=== PATIENT | male | born 1990 | race Caucasian/White ===

== ENCOUNTER 2020-03-26 15:34 | Emergency (ER) | payer BC, SELFPAY ==
[2020-03-26 15:40] VITALS: BP 145/99; PULSE 125; RESP 22; TEMP 38.4; O2SAT 98; BMI 36.5
[2020-03-26 15:44] VITALS: BP 145/99; PULSE 125; RESP 22; TEMP 38.4; O2SAT 98; BMI 36.1
--- NOTE | 2020-03-26 16:00 | PC.NURSE ---
80mg of ibuprofen given by mouth and tolerated well. Unable to document on MAR related to computer problems.
--- NOTE | 2020-03-26 16:01 | HMH.EDUTC ---
[facility] [facility] [place] Clinical Impression: Fever Qualifiers: Fever type: unspecified Qualified Code(s): R50.9 - Fever, unspecified Diarrhea Qualifiers: Diarrhea type: unspecified type Qualified Code(s): R19.7 - Diarrhea, unspecified Disposition: Home, Self-Care Condition on Discharge: Good Instructions: Acetaminophen (Alternative Therapy), Diarrhea, DI for Fever (Symptom) -- Adult, Ibuprofen, Preventing the Spread of Coronavirus Discharge Instructions Additional Instructions: ? Drink extra fluids with and between meals. If you have difficulty drinking, try very small amounts of water or suck on ice chips. ? Avoid fruit juices, as these do not replace minerals and can actually increase diarrhea. ? Children and adults can use sports drinks to replenish electrolytes. Younger children and infants should use products formulated for children, like oral rehydration solutions. ? Eat food in small amounts and let your stomach recover. ? Get lots of rest. You may feel tired or weak. ? No greasy or fried foods for the next 24-48 hours BRAT diet Bananas Rice Apples and [place] ? Make sure to drink plenty of liquids ? Return if needed ? Straight to ER if any life threatening symptoms ? Zofran as prescribed ? You was given an outpatient order for diarrhea panel, please collect specimen and bring back to outpatient lab then call back to the [facility] or follow up with family doctor for results ? Follow up with family doctor in the next 48-72 hours if no improvement or any worsening of symptoms You was given handout with instructions on self quarantining due to possible COVID19, you must go home and self quarantine while awaiting test results and avoid people and public and stay home if positive test. No work until negative COVID 19 test. Make sure to call back to [facility] in the next couple of hours for results Return if needed Straight to ER if any worsening of symptoms, or any life threatening symptoms Prescriptions: Ondansetron [Zofran 4mg ODT] 4 mg PO Q8HP PRN #20 tab.rapdis PRN Reason: Nausea Transmission Status: Pending to [facility] Dicyclomine HCl [Bentyl 10mg capsule] 10 mg PO TID PRN #15 cap PRN Reason: Cramping Transmission Status: Pending to [facility] Referrals: Provider,Referral, [Primary Care Provider] - Forms: Work/School Release Time of Disposition: 17:28 Medical Decision Making - Robby Inquiry Pt receiving controlled substance: No Robby was queried for this patient: No Vital Signs: 03/26/20 15:40 03/26/20 15:44 Temperature 101.1 F H 101.1 F H Temperature Source Oral Oral Pulse Rate [Right] 125 H 125 H Respiratory Rate 22 22 Blood Pressure [Right Arm] 145/99 H 145/99 H Blood Pressure Mean [Right Arm] 114 114 Blood Pressure Source [Right Arm] Automatic Cuff Blood Pressure Position [Right Arm] Sitting 02 Sat by Pulse Oximetry 98 98 Oxygen Delivery Method Room Air Room Air - Lab Data Lab results reviewed: Yes: I reviewed the patient's lab results. Orders (Tests/Meds): ORDERS Category Date Time Status Respiratory Panel (COVID), PCR Stat Lab 03/26/20 16:24 Ordered SARS-CoV-2, [place] ([place]) Stat Lab 03/26/20 16:06 Stop Req - Reevaluation(s) Time: 16:48 Reevaluation #1: Awaiting lab results, sitting in chair no distress no diarrhea since arrival Time: 17:19 Reevaluation #3: Lab results still not back, called lab spoke to Paulo and advised would be another hour to hour and half and patient did not want to wait advised that he would call back for result. Patient educated on going home, quarantining and no work and not to be around anyone until negative covid test patient verbalized understanding and return to ER immediately if any worsening of symptoms or any life threatening symptoms [facility] [place] [facility] [place] - General Stated complaint: SOB,MORAES,Diarrhea Time Seen by Provider: 03/26/20 16:01 Mode of Arrival: Ambulatory Source of Information: Patient Limitations: No Limitations Description of S
--- NOTE | 2020-03-26 16:58 | PC.NURSE ---
tylenol given per order.
[2020-03-26 17:29] VITALS: PULSE 110; TEMP 37.7
[2020-03-26 17:31] LABS: UTC Strep Screen (Rapid) Negative (Negative)
[2020-03-26 17:32] LABS: UTC Influenza A Antigen Negative (Negative); UTC Influenza B Antigen Negative (Negative)
[2020-03-26 17:35] VITALS: BP 145/99; PULSE 110; RESP 22; TEMP 37.7; O2SAT 98
[2020-03-26 19:42] LABS: Adenovirus,PCR Not Detected (NotDetected); Bordetella Pertussis Not Detected (NotDetected); Chlamydophila Pneumoniae, PCR Not Detected (NotDetected); Coronavirus 19, PCR Not Detected (NotDetected); Coronavirus 229E Not Detected (NotDetected); Coronavirus NL63 Not Detected (NotDetected); Coronavirus OC43 Not Detected (NotDetected); Coronovirus HKU1,PCR Not Detected (NotDetected); Human Metapneumovirus Not Detected (NotDetected); Influenza A, PCR Not Detected (NotDetected); Influenza AH1, 2009 Not Detected (NotDetected); Influenza AH1, PCR Not Detected (NotDetected); Influenza AH3,PCR Not Detected (NotDetected); Influenza B, PCR Not Detected (NotDetected); Mycoplasma Pneumoniae, PCR Not Detected (NotDected); Parainfluenza 1, PCR Not Detected (NotDetected); Parainfluenza 2, PCR Not Detected (NotDetected); Parainfluenza 3, PCR Not Detected (NotDetected); Parainfluenza 4, PCR Not Detected (NotDetected); Respiratory Syncytial Virus Not Detected (NotDetected); Rhinovirus/Enterovirus Not Detected (NotDetected)
== END 2020-03-26 17:36 | disposition home or self-care (01) ==
PROVIDERS: Emergency Provider Nurse Practitioner
DX: R19.7 Diarrhea, unspecified (principal); R50.9 Fever, unspecified
CPT/HCPCS: 87581; 87633; 87798; 87804; 87880; 99202

== ENCOUNTER 2020-03-27 08:47 | Emergency (ER) | payer BC, SELFPAY ==
[2020-03-27 08:47] VITALS: BP 132/71; PULSE 120; RESP 22; TEMP 39.4; O2SAT 97; BMI 36.5
--- NOTE | 2020-03-27 08:53 | HMH.EDGENADL ---
ED Disposition Clinical Impression: Campylobacter enteritis, Colitis, E coli enteritis Disposition: Home, Self-Care Condition on Discharge: Fair Instructions: DI for Diarrhea and Traveler's Diarrhea -- Adult, DI for Colitis Additional Instructions: Zithromax as prescribed. Drink plenty of fluids. Tylenol or ibuprofen for fever and pain. Off work until diarrhea and fever have resolved. Return to the emergency room if uncontrollable fever greater than 104 degrees, persistent vomiting, severe abdominal pain or distention. You are being provided with a list of physicians available for follow-up of your condition. Please call a physician on this list to arrange a follow-up appointment as soon as possible. Prescriptions: Azithromycin [Zithromax 250mg tab] 250 mg PO DAILY #4 tab Transmission Status: Received by [id number] Referrals: Provider,Referral, [Primary Care Provider] - Forms: Work/School Release - Critical Care Critical Care Time: No Attestation: On , the high probability of a clinically significant, sudden or life threatening deterioration of the following system(s) required my full and direct attention, intervention and personal management. The time I documented below is in addition to time spent performing reported procedures but includes the following listed in this critical care notation. Medical Decision Making - Medical Records Medical records reviewed: Yes: I reviewed the patient's medical records. - Robby Inquiry Pt receiving controlled substance: No Robby was queried for this patient: Yes Reference #:: [id number] Comment: 0 rxs. Vital Signs: 03/27/20 08:47 03/27/20 09:34 03/27/20 10:51 Temperature 102.9 F H 99.1 F Temperature Source Oral Oral Pulse Rate Pulse Rate [Left Radial] 120 H 112 H Respiratory Rate 22 Blood Pressure Blood Pressure [Right Arm] 132/71 112/70 Blood Pressure Mean [Right Arm] 91 84 Blood Pressure Source Blood Pressure Position Blood Pressure Position [Right Arm] Sitting Sitting 02 Sat by Pulse Oximetry 97 Oxygen Delivery Method Room Air 03/27/20 12:21 Temperature 99.1 F Temperature Source Oral Pulse Rate 112 H Pulse Rate [Left Radial] Respiratory Rate 22 Blood Pressure 112/70 Blood Pressure [Right Arm] Blood Pressure Mean [Right Arm] Blood Pressure Source Automatic Cuff Blood Pressure Position Sitting Blood Pressure Position [Right Arm] 02 Sat by Pulse Oximetry Oxygen Delivery Method Room Air - Lab Data Lab results reviewed: Yes: I reviewed the patient's lab results. Lab Results 03/27/20 09:03: WBC 12.1 H, RBC 5.10, Hgb 14.5, Hct 43.1, MCV 84.4, MCH 28.4, MCHC 33.6, RDW 13.9, Plt Count 177, MPV 8.9, Neut % (Auto) 87.9 H, Lymph % (Auto) 6.0 L, [place] % (Auto) 5.6, Eos % (Auto) 0.3, Baso % (Auto) 0.1, Neut # (Auto) 10.6 H, Lymph # (Auto) 0.7, [place] # (Auto) 0.7, Eos # (Auto) 0.0, Baso # (Auto) 0.0, Total Counted 100, Neutrophils % (Manual) 90 H, Lymphocytes % (Manual) 4 L, Monocytes % (Manual) 6, Platelet Estimate Normal, RBC Morphology Normal 03/27/20 09:03: Sodium 132 L, Potassium 3.7, Chloride 99, Carbon Dioxide 23, Anion Gap 13.7, BUN 15, Creatinine 0.80, Estimated Creat Clear 210, Estimated GFR 114, Est GFR ( Amer) 138, Glucose 205 H, Calcium 8.4, Total Bilirubin 1.3, AST 58, ALT 152 H, Alkaline Phosphatase 136 H, Total Protein 7.6, Albumin 4.2, Globulin 3.4 H, Albumin/Globulin Ratio 1.2 03/27/20 09:03: Stl Aeromonas (PCR) Not detected, Stl C. cayetanensis PCR Not detected, Stool Rotavirus (PCR) Not detected, Stl Adenov F 40/41 PCR Not detected, Stool Astrovirus (PCR) Not detected, Stool Campylobacter PCR Detected A, Stl C.difficile Tox PCR Not detected, Stool Cryptosporidium PCR Not detected, Stl E.coli Shiga Tox PCR Not detected, Stool E coli O157 PCR Not detected, Stl Enterotoxigenic E PCR Not detected, Stool EPEC (PCR) Detected A, Stool EAEC (PCR) Not detected, Stl E. histolytica PCR Not detected, Stool Mami
[2020-03-27 09:03] VITALS: BMI 41.1
--- NOTE | 2020-03-27 09:09 | CT_ITS ---
PROCEDURE: CT ABDOMEN PELVIS W CON CLINICAL INDICATION: abdo pain Abdominal pain with fever chills nausea and diarrhea COMPARISON: No exams were available for comparison TECHNIQUE: IV Contrast: 75ML OPTIRAY 350 Oral Contrast 20ml Gastroview Axial images obtained with sagittal and coronal reformats. All CT scans at the facility use one or more dose reduction, viz: automated exposure control, ma/kV adjustment per patient size (including targeted exams where dose is matched to indication, i.e. head), or iterative reconstruction technique. FINDINGS: LOWER THORAX: No acute finding ABDOMEN & PELVIS: Mild fatty liver. There is splenomegaly at 16 cm. The pancreas, adrenal glands, and kidneys have an unremarkable appearance. There are few scattered small retroperitoneal, peripancreatic, and portal lymph nodes as well as scattered small nodes in the mesenteries and right lower quadrant. No evidence of appendicitis or diverticulitis. There is mild diffuse thickening of the ascending, transverse, and descending and proximal sigmoid colon consistent with colitis. No abnormal fluid collections. No acute bony anomalies. There is degenerative disc disease in the lower thoracic spine. Nodes are present in the right lower quadrant measuring up to 1.5 cm. There is a small umbilical hernia containing fat. IMPRESSION: 1. Mild diffuse thickening of the colon of the ascending, transverse, descending, and proximal sigmoid colon consistent with colitis. 2. Scattered small mesenteric and retroperitoneal lymph nodes which are nonspecific. 3. No evidence of appendicitis or diverticulitis. Dictated by: Cristofer Hernandez MD 03/27/2020 10:03 Electronically signed by Cristofer Hernandez MD in [place] 03/27/2020 10:03
[2020-03-27 09:12] LABS: Adenovirus F 40/41, stool Not Detected (NotDetected); Astrovirus Not Detected (NotDetected); Clostridium Difficile A/B, PCR Not Detected (NotDetected); Cryptosporidium Not Detected (NotDetected); Cyclospora Cayetanesis Not Detected (NotDetected); Entamoeba histolytica Not Detected (NotDetected); Enteroaggregative E coli Not Detected (NotDetected); Enterotoxigenic E coli Not Detected (NotDetected); Giardia lamblia Not Detected (NotDetected); Norovirus Not Detected (NotDetected); Plesimonas Shigalloides, PCR Not Detected (NotDetected); Rotavirus A Not Detected (NotDetected); Salmonella, PCR Not Detected (NotDetected); Sapovirus Not Detected (NotDetected); Shiga-like toxin E coli Not Detected (NotDetected); Shigella Enterovasive E coli Not Detected (NotDetected); Vibrio Cholerae Not Detected (NotDetected); Vibrio, PCR Not Detected (NotDetected); Yersinia Entercolitica, PCR Not Detected (NotDetected)
[2020-03-27 09:16] LABS: Basophils % 0.1 % (0.1-2.0); Eosinophils % 0.3 % (0.1-12.0); Hematocrit 43.1 % (42.0-52.0); Hemoglobin 14.5 g/dL (14.1-18.0); Lymphocytes # 0.7 K/mm3 (0.7-4.5); Mean Corpuscular HGB Conc 33.6 g/dL (31.8-35.4); Mean Corpuscular Hemoglobin 28.4 pg (27.0-31.2); Mean Corpuscular Volume 84.4 fl (80-94); Mean Platelet Volume 8.9 fl (7.4-10.4); Monocytes # 0.7 K/mm3 (0.1-1.0); Monocytes % 5.6 % (1.7-9.3); Neutrophils # 10.6 K/mm3 (1.8-7.8); Neutrophils % 87.9 % (37.0-80.0); Platelet Count 177 K/mm3 (142-424); Red Cell Distribution Width 13.9 % (11.5-17.5); White Blood Count 12.1 K/mm3 (4.8-10.8)
[2020-03-27 09:17] LABS: Chloride 99 mmol/L (98-107); Sodium 132 mmol/L (136-145)
[2020-03-27 09:18] LABS: Potassium 3.7 mmoL/L (3.5-5.1)
[2020-03-27 09:20] LABS: Alanine Aminotransferase 152 U/L (12-78); Albumin Level 4.2 g/dl (3.5-5.0); Albumin/Globulin Ratio 1.2 (1.1-1.8); Alkaline Phosphatase 136 U/L (38-126); Anion Gap 13.7 mEq/L (5-15); Aspartate Amino Transferase 58 U/L (17-59); Bilirubin,Total 1.3 mg/dl (0.2-1.3); Blood Urea Nitrogen 15 mg/dl (9-20); Carbon Dioxide 23 mmol/L (22.0-30.0); Creatinine Clearance Estimated 210 mL/min (50-200); Estimated Glomerular Filt Rate 114 ml/min (>60); GFR (African American) 138 ML/MIN (>60); Globulin 3.4 g/dL (1.3-3.2); MANUAL DIFFERENTIAL MANUAL DIFFERENTIAL (MANUAL DIFF); Total Protein,Serum 7.6 g/dl (6.3-8.2)
[2020-03-27 09:21] LABS: Calcium 8.4 mg/dl (8.4-10.2); Glucose 205 mg/dl (74-100); Lipase 32 U/L (23-300)
[2020-03-27 09:28] LABS: Lymphocytes % 4 % (10-50); Monocytes % 6 % (2-9); Neutrophils % 90 % (42-76); Platelet Estimate Normal; RBC Morphology Normal; Total Cells Counted 100
[2020-03-27 09:34] VITALS: BP 112/70; PULSE 112
[2020-03-27 09:37] LABS: Lactic Acid 1.2 mmol/L (0.7-2.1)
[2020-03-27 10:22] LABS: Appearance,Urine CLEAR (Clear); Blood, Urine Negative (Negative); Color,Urine DK YELLOW (Yellow); Glucose,Urine (UA) Negative (Negative); Ketones,Urine 1+ (Negative); Leukocyte Esterase,Urine Negative (Negative); Microscopic, Urine URINE MICROSCOPIC (MICROSCOPIC); Nitrate,Urine Negative (Negative); PH,Urine 5.5 (5.0-8.5); Protein,Urine 1+ (Negative); Specific Gravity, Urine 1.015 (1.005-1.030); Urobilinogen,Urine 0.2 EU/dl (0.2)
[2020-03-27 10:28] LABS: Bilirubin,Urine Negative (Negative)
[2020-03-27 10:41] LABS: WBC,Urine Occasional #/hpf (0-3)
[2020-03-27 10:51] VITALS: TEMP 37.3
[2020-03-27 11:05] LABS: Campylobacter Detected (NotDetected)
[2020-03-27 11:06] LABS: Enteropathogenic E coli Detected (NotDetected)
--- NOTE | 2020-03-27 11:18 | PC.NURSE ---
notified of diarrhea panel results.
--- NOTE | 2020-03-27 11:23 | PC.NURSE ---
Pt is sleeping soundly at this time.
[2020-03-27 12:21] VITALS: BP 112/70; PULSE 112; RESP 22; TEMP 37.3; O2SAT 97
[2020-03-28 05:11] LABS: Hep A Ab, IgM Negative (Negative); Hepatitis B Core Antibody IgM Negative (Negative); Hepatitis B Surface Antigen Negative (Negative)
[2020-03-28 10:37] LABS: Hepatitis C Antibody <0.1 s/co ratio (0.0-0.9)
== END 2020-03-27 12:22 | disposition home or self-care (01) ==
PROVIDERS: Emergency Provider Emergency Medicine
DX: K52.9 Noninfective gastroenteritis and colitis, unspecified (principal); A04.4 Other intestinal Escherichia coli infections; A04.5 Campylobacter enteritis
CPT/HCPCS: 74177; 80053; 80074; 81001; 83605; 83690; 85007; 85025; 87040; 87507; 96365; 96366; 96367; 99284; J0456; Q9967

== ENCOUNTER 2021-07-01 19:19 | Emergency (ER) | payer BC, SELFPAY ==
[2021-07-01 20:19] VITALS: BP 139/91; PULSE 82; RESP 21; TEMP 38.9; O2SAT 99; BMI 39.5
--- NOTE | 2021-07-01 20:38 | HMH.EDUTC ---
[facility] – [place] Clinical Impression: Sinusitis Qualifiers: Sinusitis location: unspecified location Chronicity: unspecified Qualified Code(s): J32.9 - Chronic sinusitis, unspecified Disposition: Home, Self-Care Condition on Discharge: Good Instructions: DI for Fever (Symptom) -- Adult Additional Instructions: *Monitor Temp, Over the counter Motrin or Tylenol as directed/as needed Tylenol every 4 hours and Motrin every 6 hours (as long as your family doctor has told you that you can take it) for fever or pain. and straight to ER if unable to lower temp less than 101.0 after medication given *Warm salt water gargles may help to soothe the throat *Throat Lozenges *Warm fluids like tea with honey may help to soothe the throat *Sleep elevated *Humidifier/Vaporizer *Flonase 2 sprays in each nostril daily but be aware that it may take 2-3 days before you notice improvement Follow up IMMEDIATELY for new or worsening symptoms or no Noticeable improvement over the next 48-72 hours. 911 for difficulty breathing or swallowing You were tested for today for COVID19 your test result should be back in the next 24-48 hours, You was given handout for instructions to [facility] to view your result if you are unable to log on you may call You was given a handout with instructions for Self Quarantine and Self isolation for while you wait on test results and what to do if they are positive If you are positive the Health Dept will be contacting you also Make sure to take your Vitamins Vit. C Vit D and Zinc if you can take them Prescriptions: Doxycycline Monohydrate [Doxycycline [place] 100mg Tab] 100 mg PO Q12 7 Days #14 tab Transmission Status: Received by [facility] Fluticasone Propionate [Flonase 50mcg nasal spray 16gm] 1 spr NS DAILY #1 each Transmission Status: Received by [facility] predniSONE [Prednisone 20mg Tab] 20 mg PO BID 5 Days #10 tab Transmission Status: Received by [facility] Referrals: Provider,Referral, MD [Primary Care Provider] - Forms: Work/School Release Medical Decision Making - Robby Inquiry Pt receiving controlled substance: No Robby was queried for this patient: No Vital Signs: 07/01/21 20:19 07/01/21 20:58 Temperature 102.0 F H 100.7 F H Temperature Source Oral Pulse Rate 82 Pulse Rate [Right Brachial] 82 Respiratory Rate 21 21 Blood Pressure 139/91 H Blood Pressure [Right Arm] 139/91 H Blood Pressure Mean [Right Arm] 107 Blood Pressure Source [Right Arm] Automatic Cuff Blood Pressure Position [Right Arm] Sitting 02 Sat by Pulse Oximetry 99 Oxygen Delivery Method Room Air Orders (Tests/Meds): ED MEDICATIONS Discontinued Medications Generic Name Dose Route Start Last Admin Trade Name Joie PRN Reason Stop Dose Admin Acetaminophen 650 mg 07/01/21 20:11 07/01/21 20:15 Acetaminophen 325mg Tab PO 07/01/21 20:12 650 mg ONCE ONE Administration Doxycycline Hyclate 100 mg 07/01/21 20:50 07/01/21 20:57 Doxycycline Hycl 100 Mg Tablet PO 07/01/21 20:51 100 mg ONCE ONE Administration Ibuprofen 800 mg 07/01/21 20:11 07/01/21 20:15 Ibuprofen 400 Mg Tablet PO 07/01/21 20:12 800 mg ONCE ONE Administration ORDERS Category Date Time Status Covid-19 Nasal PCR ([facility]) Routine Lab 07/01/21 19:[address] [facility] [place] - General Stated complaint: sinus,sore throat,MORAES Time Seen by Provider: 07/01/21 20:38 Mode of Arrival: Ambulatory Source of Information: Patient Description of Symptoms (Recalled from Triage Doc. by RN): fever. body aches. sinus pressure. cough HEENT Symptoms (Recalled from RN notes): Yes Resp Symptoms (Recalled from RN notes): Yes Skin Symptoms (Recalled from RN notes): No MS Symptoms (Recalled from RN notes): No Functional Status (Recalled from RN notes): yes - History of Present Illness Provider Complaint: Patient states that he feels like he is having a sinus infectio
[2021-07-01 20:58] VITALS: BP 139/91; PULSE 82; RESP 21; TEMP 38.2
== END 2021-07-01 20:58 | disposition home or self-care (01) ==
PROVIDERS: Emergency Provider Nurse Practitioner
DX: U07.1 COVID-19 (principal); J32.9 Chronic sinusitis, unspecified; J02.9 Acute pharyngitis, unspecified
CPT/HCPCS: 99202; C9803; G0463; U0003; U0005

== ENCOUNTER → 2021-07-02 17:44 | Outpatient (CLI) | payer BC, SELFPAY | PROVIDERS: Visit Provider Nurse Practitioner | DX: Z20.822 Contact with and (suspected) exposure to COVID-19 (principal); U07.1 COVID-19 | CPT/HCPCS: C9803; U0003; U0005 ==

== ENCOUNTER → 2021-07-11 08:10 | Outpatient (CLI) | payer BC, SELFPAY | PROVIDERS: Visit Provider Nurse Practitioner | DX: Z20.822 Contact with and (suspected) exposure to COVID-19 (principal); U07.1 COVID-19 | CPT/HCPCS: C9803; U0003; U0005 ==

== ENCOUNTER 2022-06-29 15:53 | Emergency (ER) | payer BC, SELFPAY ==
[2022-06-29 16:01] VITALS: BP 134/101; PULSE 109; RESP 24; TEMP 37.2; O2SAT 97; BMI 36.6
--- NOTE | 2022-06-29 16:15 | EXP.UTC ---
Discharge Plan Disposition Patient Disposition: Home, Self-Care Condition: Good Referrals Follow up/Referrals: Provider,Referral, [Primary Care Provider] - See instructions Activity Restrictions/Add. Instructions Additional Instructions/Restrictions: Do not drink energy drinks. Clinical Impressions Clinical Impression: Viral illness Stand Alone Forms Stand Alone Forms: Work/School Release Instructions Patient Instructions: DI for COVID-19 (Suspected or Confirmed ), Preventing the Spread of Coronavirus Discharge Instructions Discharge ED Provider: Josephine Kimball [facility] [place] General Stated complaint: ? fever,body aches Mode of Arrival: Ambulatory Source of Information: Patient Limitations: No Limitations Time Seen by Provider: 06/29/22 16:06 Description of Symptoms (Recalled from Triage Doc. by RN): pt comes in with c/o fever, diarrhea, body aches, belly cramping, shortness of air. symptoms began last night. HEENT Symptoms (Recalled from RN notes): Yes Resp Symptoms (Recalled from RN notes): Yes Skin Symptoms (Recalled from RN notes): No MS Symptoms (Recalled from RN notes): No Functional Status (Recalled from RN notes): n/a History of Present Illness Provider Complaint: Pt states that last night he started having body aches and subjective fever. He relates that he feels short of air and has had abdominal pain and diarrhea. He states that he thought that he would feel better after he woke up. He states that he took his son to his soccer game and his body was hurting so bad that he left him with his dad and came to be seen. He states that he has never had body aches like this before. He relates that he drank an energy drink upon arising today. He denies any recent vaccination. Related Data Allergies Allergy/AdvReac Type Severity Reaction Status Date / Time Penicillins Allergy Verified 06/29/22 16:07 Worker's Comp Is this a Worker's Comp case?: No [facility] Social History Smoking Status: Never smoker alcohol intake: never current occupational status: employed Travel in the last 8 weeks: None housing: other ROS Obtained: Yes All systems reviewed & no additional complaints except as documented Constitutional Constitutional: Reports body ache, Reports fatigue and Reports fever(s) Eyes Eyes: Reports system reviewed and no additional complaints, except as documented ENT Ears, Nose, Mouth, and Throat: Reports system reviewed and no additional complaints, except as documented Cardiovascular Cardiovascular: Reports system reviewed and no additional complaints, except as documented Respiratory Respiratory: Reports as per HPI and Reports shortness of breath Gastrointestinal Gastrointestingal: Reports system reviewed and no additional complaints, except as documented Genitourinary Male Genitourinary: Reports system reviewed and no additional complaints, except as documented Musculoskeletal Musculoskeletal: Reports as per HPI and Reports myalgias Integumentary/Breasts Skin/Breast: Reports system reviewed and no additional complaints, except as documented Neurologic Neurologic: Reports system reviewed and no additional complaints, except as documented Endocrine Endocrine: Reports as per HPI and Reports fatigue Hematologic/Lymphatic Henatologic/Lymphatic: Reports system reviewed and no additional complaints, except as documented Allergic/Immunologic Allergic/Immunologic: Reports system reviewed and no additional complaints, except as documented Physical Exam General General appearance: alert and anxious Head Head exam: atraumatic and normocephalic Eye Eye exam: Present normal appearance ENT ENT exam: Present normal exam, normal oropharynx and mucous membranes moist Neck Neck exam: Present normal inspection Chest Chest inspection: Present normal inspection and symmetric chest wall rise Respiratory Respiratory exam: Present normal lung sounds bi
[2022-06-29 16:23] LABS: UTC Influenza A Antigen Negative (Negative); UTC Influenza B Antigen Negative (Negative)
[2022-06-29 16:46] VITALS: BP 134/71; PULSE 90; RESP 24; TEMP 37.2
== END 2022-06-29 16:47 | disposition home or self-care (01) ==
PROVIDERS: Emergency Provider Nurse Practitioner Family
DX: B34.9 Viral infection, unspecified (principal); R06.02 Shortness of breath; M79.10 Myalgia, unspecified site; R19.7 Diarrhea, unspecified; R50.9 Fever, unspecified; Z20.822 Contact with and (suspected) exposure to COVID-19; Z88.0 Allergy status to penicillin
CPT/HCPCS: 87804; 99213; C9803; G0463; U0003; U0005

== ENCOUNTER 2023-01-09 13:05 | Emergency (ER) | payer BC, SELFPAY ==
--- NOTE | 2023-01-09 13:29 | EXP.UTC ---
Discharge Plan Disposition Patient Disposition: Home, Self-Care Condition: Good Prescriptions Prescriptions: New erythromycin 5 mg/gram (0.5 %) ointment 1 cm ophthalmic (eye) Q4H 7 Days Qty: 3.5 0RF ibuprofen [IBU] 800 mg tablet 800 mg PO Q8HP PRN (Reason: Moderate Pain) Qty: 30 0RF Referrals Follow up/Referrals: Provider,Referral, MD [Primary Care Provider] - See instructions Activity Restrictions/Add. Instructions Additional Instructions/Restrictions: Use the eye ointment as directed. Take the ibuprofen for pain. Follow up with your regular doctor. These usually heal well, but if you are continuing to have worsening symptoms after 48 hours, please follow up with your eye doctor. GO TO THE ER FOR ANY WORSENING SYMPTOMS OR CONCERNS Clinical Impressions Clinical Impression: Abrasion, corneal Instructions Patient Instructions: DI for Corneal Abrasion, Corneal Abrasion, Erythromycin Ophthalmic Discharge ED Provider: Sebastien Diaz [facility] [place] General Stated complaint: right eye hurt, no sure if somethings in it Time Seen by Provider: 01/09/23 13:29 History of Present Illness Provider Complaint: He states that some during last night it felt like he got something in his left eye. When he woke up this morning his symptoms were worse. He denies any known injury. Related Data Previous Rx's Medication Instructions Recorded erythromycin 5 mg/gram (0.5 %) eye 1 cm ophthalmic (eye) Q4H 7 days 01/09/23 ointment #3.5 grams ibuprofen 800 mg tablet (IBU) 800 mg PO Q8HP PRN Moderate Pain 01/09/23 #30 tabs Allergies Allergy/AdvReac Type Severity Reaction Status Date / Time Penicillins Allergy Verified 01/09/23 13:32 [facility] Disclaimer: The information contained in this section may have been updated after the patient was seen, as this information can be updated by other users. Social History Smoking Status: Never smoker alcohol intake: never current occupational status: employed Travel in the last 8 weeks: None housing: other ROS Obtained: Yes All systems reviewed & no additional complaints except as documented Constitutional Constitutional: Denies chills and Denies fever(s) Eyes Eyes: Reports as per HPI, Denies change in vision and Reports eye discharge ENT Ears, Nose, Mouth, and Throat: Denies dizziness, Denies otalgia and Denies sore throat Cardiovascular Cardiovascular: Denies chest pain Respiratory Respiratory: Denies shortness of breath, Denies chest congestion, Denies cough, Denies stridor and Denies wheezing Gastrointestinal Gastrointestingal: Denies nausea or vomiting Musculoskeletal Musculoskeletal: Reports system reviewed and no additional complaints, except as documented and Denies arthralgias Integumentary/Breasts Skin/Breast: Denies rash Neurologic Neurologic: Denies dizziness and Denies paresthesias Allergic/Immunologic Allergic/Immunologic: Denies wheezing Physical Exam General General appearance: alert and in no apparent distress Head Head exam: atraumatic, normocephalic and normal inspection Eye Eye exam: Present PERRL and EOMI Expanded Eye Exam Eyelids: left: erythema and right: normal inspection Pupils: Left: size (3), Right: size (3) and Bilateral: regular, round and reactive Sclera/Conjunctival: left: injection (corneal abrasion noted upon dying and exam. ) and right: normal inspection ENT ENT exam: Present normal exam, normal oropharynx, mucous membranes moist, TM's normal bilaterally and normal external ear exam Neck Neck exam: Present normal inspection, full ROM and trachea midline; Absent meningismus or lymphadenopathy Chest Chest inspection: Present normal inspection and symmetric chest wall rise; Absent tenderness Respiratory Respiratory exam: Present normal lung sounds bilaterally; Absent respiratory distress Cardiovascular Cardiovascular exam: Present regular rate and normal rhythm;
[2023-01-09 13:30] VITALS: BP 168/108; PULSE 101; RESP 16; TEMP 36.8; O2SAT 99; BMI 38.4
[2023-01-09 14:18] VITALS: BP 168/108; PULSE 101; RESP 16; TEMP 36.8
== END 2023-01-09 14:23 | disposition home or self-care (01) ==
LOC: ER 13:21 → UTC 13:22
PROVIDERS: Emergency Provider Nurse Practitioner Family
DX: S05.01XA Injury of conjunctiva and corneal abrasion without foreign body, right eye, initial encounter (principal)
CPT/HCPCS: 99212; 99214; G0463

== ENCOUNTER 2023-11-13 08:14 | Emergency (ER) | payer BC, SELFPAY ==
[2023-11-13 08:15] VITALS: BP 127/97; PULSE 118; RESP 18; TEMP 36.8; O2SAT 97; BMI 36.5
--- NOTE | 2023-11-13 08:30 | EXP.UTC ---
Discharge Plan Disposition Patient Disposition: Home, Self-Care Condition: Good Prescriptions Prescriptions: New ibuprofen [IBU] 800 mg tablet 800 mg PO Q8HP PRN (Reason: Moderate Pain) Qty: 30 0RF cephalexin 500 mg capsule 500 mg PO QID Qty: 40 0RF Referrals Follow up/Referrals: Carlos Harp MD [Staff Physician] - 11/18/23 9:30 am Provider,MD Malinda [Primary Care Provider] - See instructions Activity Restrictions/Add. Instructions Additional Instructions/Restrictions: Take ibuprofen for pain. I sent in a prescription for ibuprofen 800 mg. Take the medications as directed. Follow up with your regular doctor. I called the General Surgeon's office and got you an appointment to be seen there. Your appointment is on November 18 (Friday) at 9:[address] Harp here in his office in the hospital. If your symptoms aree worsening before then please call the office and see if they can see you sooner. GO TO THE ER FOR ANY WORSENING SYMPTOMS Clinical Impressions Clinical Impression: Pilonidal cyst Instructions Patient Instructions: Pilonidal Cyst, Cephalexin Discharge ED Provider: Sebastien Diaz [facility] General Stated complaint: tailbone pain, swollen Time Seen by Provider: 11/13/23 08:28 History of Present Illness Provider Complaint: He states that for the past 3 days he has had a painful tender area of swelling at the top of the cleft of his buttocks. He states that sitting and lying on his back makes the pain worse. He denies any fever/chills/malaise. He has never had tenderness or swelling is this area before. Related Data Previous Rx's Medication Instructions Recorded cephalexin 500 mg capsule 500 mg PO QID #40 caps 11/13/23 ibuprofen 800 mg tablet (IBU) 800 mg PO Q8HP PRN Moderate Pain 11/13/23 #30 tabs Allergies Allergy/AdvReac Type Severity Reaction Status Date / Time Penicillins Allergy Verified 11/13/23 08:54 [facility] Disclaimer: The information contained in this section may have been updated after the patient was seen, as this information can be updated by other users. Social History Smoking Status: Never smoker alcohol intake: never current occupational status: employed Travel in the last 8 weeks: None housing: other ROS Obtained: Yes All systems reviewed & no additional complaints except as documented Constitutional Constitutional: Denies chills and Denies fever(s) Eyes Eyes: Denies eye discharge ENT Ears, Nose, Mouth, and Throat: Denies dizziness, Denies otalgia and Denies sore throat Cardiovascular Cardiovascular: Denies chest pain Respiratory Respiratory: Denies shortness of breath, Denies chest congestion, Denies cough, Denies stridor and Denies wheezing Gastrointestinal Gastrointestingal: Denies nausea or vomiting Musculoskeletal Musculoskeletal: Reports system reviewed and no additional complaints, except as documented and Denies arthralgias Integumentary/Breasts Skin/Breast: Reports as per HPI Neurologic Neurologic: Denies dizziness and Denies paresthesias Allergic/Immunologic Allergic/Immunologic: Denies wheezing Physical Exam General General appearance: alert and in no apparent distress Head Head exam: atraumatic, normocephalic and normal inspection Eye Eye exam: Present normal appearance, PERRL and EOMI ENT ENT exam: Present normal exam, normal oropharynx, mucous membranes moist, TM's normal bilaterally and normal external ear exam Neck Neck exam: Present normal inspection, full ROM and trachea midline; Absent meningismus or lymphadenopathy Chest Chest inspection: Present normal inspection and symmetric chest wall rise; Absent tenderness Respiratory Respiratory exam: Present normal lung sounds bilaterally; Absent respiratory distress Cardiovascular Cardiovascular exam: Present regular rate and normal rhythm; Absent JVD Abdominal Exam Abdominal exam: Present soft and normal bowel sounds; Absent distention, tenderness or guarding Extremities Exam Extremities exam: Present normal inspection, full ROM and normal capillary refill; Absent calf tenderness Back Exam Back exam: Present normal inspection; Absent tenderness Neurological Exam Neurological exam: Present alert and oriented X3 Psychiatric Psychiatric exam: Present normal affect and normal mood Skin Skin exam: Present other (there is an area of edema and erythema located at the top of the cleft of his buttocks. A small area of induration is noted. The cyst does not appear to be ready to drain at this time. ) Lymphatic Lymphatic Findings: no adenopathy Medical Decision Making Medical Records Medical records reviewed: No I reviewed the patient's medical records. Robby Inquiry Pt receiving controlled substance: No
[2023-11-13 09:21] VITALS: BP 127/97; PULSE 118; RESP 18; TEMP 36.8; O2SAT 97
== END 2023-11-13 09:21 | disposition home or self-care (01) ==
PROVIDERS: Emergency Provider Nurse Practitioner Family
DX: L05.91 Pilonidal cyst without abscess (principal)
CPT/HCPCS: 99212; 99214; G0463

== ENCOUNTER 2024-01-20 17:50 | Emergency (ER) | payer BC, SELFPAY ==
[2024-01-20 18:00] VITALS: BP 155/84; PULSE 68; RESP 18; TEMP 36.9; O2SAT 100; BMI 37.8
--- NOTE | 2024-01-20 18:12 | EXP.UTC ---
Discharge Plan Disposition Patient Disposition: Home, Self-Care Condition: Good Referrals Follow up/Referrals: Provider,Referral, MD [Primary Care Provider] - See instructions Activity Restrictions/Add. Instructions Additional Instructions/Restrictions: Over the counter Debrox drops may help to clear remaining ear wax from ear Do not use qtips this can push wax down into the canal Follow up with your Family Doctor if no improvement or any worsening of symptoms Clinical Impressions Clinical Impression: Impacted ear wax Instructions Patient Instructions: DI for Cerumen Impaction Discharge ED Provider: Karolina Arreguin [facility] [place] HPI General Stated complaint: left ear pain and poping Mode of Arrival: Ambulatory Source of Information: Patient Limitations: No Limitations Time Seen by Provider: 01/20/24 18:12 Description of Symptoms (Recalled from Triage Doc. by RN): Pt is complaining of left ear pain and popping. HEENT Symptoms (Recalled from RN notes): Yes Resp Symptoms (Recalled from RN notes): No Skin Symptoms (Recalled from RN notes): No MS Symptoms (Recalled from RN notes): No Functional Status (Recalled from RN notes): n/a History of Present Illness Provider Complaint: Patient states that he feels like he is having popping and cant hear out of his left ear States that feels like it is full or something States that he bought a ear cleaning kit and tried to use it but didnt get anything out today it he hasnt been able to hear out of it and it is aggravating him so he came in to get it checked not sure if it may have fluid in there or stopped up States it is not hurting or anything Related Data Allergies Allergy/AdvReac Type Severity Reaction Status Date / Time Penicillins Allergy Verified 01/20/24 18:07 Worker's Comp Is this a Worker's Comp case?: No [facility] Disclaimer: The information contained in this section may have been updated after the patient was seen, as this information can be updated by other users. Social History Smoking Status: Never smoker alcohol intake: never current occupational status: employed Travel in the last 8 weeks: None housing: other ROS Obtained: Yes All systems reviewed & no additional complaints except as documented and Yes Systems reviewed as appropriate & no additional complaints except as documented Constitutional Constitutional: Reports system reviewed and no additional complaints, except as documented and Reports as per HPI ENT Ears, Nose, Mouth, and Throat: Reports system reviewed and no additional complaints, except as documented, Reports as per HPI and Reports otalgia (feels like ear is full or stopped up cannot hear out of it and popping) Physical Exam General General appearance: alert and in no apparent distress ENT ENT exam: Present mucous membranes moist Expanded ENT Exam TM/Canal exam: Left TM: cerumen impaction Respiratory Respiratory exam: Present normal lung sounds bilaterally; Absent respiratory distress or wheezes Cardiovascular Cardiovascular exam: Present regular rate, normal rhythm and normal heart sounds Neurological Exam Neurological exam: Present alert, oriented X3 and normal gait Medical Decision Making Robby Inquiry Pt receiving controlled substance: No Robby was queried for this patient: No Vital Signs: 01/20/24 18:00 Temperature 98.5 F Temperature Source Oral Pulse Rate [Right Radial] 68 Respiratory Rate 18 Blood Pressure [Right Arm] 155/84 H Blood Pressure Mean [Right Arm] 107 Blood Pressure Source [Right Arm] Automatic Cuff Blood Pressure Position [Right Arm] Sitting 02 Sat by Pulse Oximetry 100 Oxygen Delivery Method Room Air Procedures Ear Wax Removal Left Ear: Cerumenolytic Used: other Results: Re-examined: some cerumen remains TM Examination: other (unable to visualize some cerumen remains ) Ear Canal Exam: atraumatic Patient Tolerated Procedure: well Complications: no problems Technique: ear canal irrigated and ear canal curetted Additional Comments: some cerumen remains but patient states he can hear now and wanted to stop irrigation
[2024-01-20 18:30] VITALS: BP 155/84; PULSE 68; RESP 18; TEMP 36.9; O2SAT 100
== END 2024-01-20 18:29 | disposition home or self-care (01) ==
PROVIDERS: Emergency Provider Nurse Practitioner
DX: H92.02 Otalgia, left ear (principal); H61.22 Impacted cerumen, left ear
CPT/HCPCS: 69210; 69209; 99213; 99214; G0463